=== PATIENT | male | born 1945 | race Caucasian/White ===

== ENCOUNTER 2020-08-31 12:07 | Inpatient (IN) | payer OTHER ==
[~2020-08-31] VITALS: Ht 177.8 cm; Wt 87.5 kg
[2020-08-31 13:05] LABS: Basophils # (auto) 0.1 10 ^3/uL (0-0.2); Basophils % (auto) 0.9 % (0.0-2.0); Eosinophils # (auto) 0.1 10 ^3/uL (0-0.8); Eosinophils % (auto) 1.8 % (0.0-7.0); Hematocrit 40.9 % (41.0-53.0); Lymphocytes # (auto) 1.1 10 ^3/uL (0.4-5.4); Lymphocytes % (auto) 18.1 % (10.0-50.0); Mean Corpuscular Hemoglobin 30.3 pg (28.0-32.0); Mean Corpuscular Hgb Conc. 34.2 g/dL (32.0-36.0); Mean Corpuscular Volume 88.4 fL (80.0-100.0); Monocytes # (auto) 0.7 10 ^3/uL (0-1.3); Monocytes % (auto) 10.7 % (0.0-12.0); Neutrophils # (auto) 4.3 10 ^3/uL (1.6-8.6); Neutrophils % (auto) 68.5 % (37.0-80.0); Platelet Count (auto) 215 10^3/uL (140-450); Red Blood Cells 4.62 10^6/uL (4.5-5.90); Red Cell Distribution Width 12.6 % (11.8-14.3); White Blood Cell 6.2 10^3/uL (4.4-10.8)
[2020-08-31 13:32] LABS: Chloride 105 mmol/L (98-107); Potassium 4.3 mmol/L (3.5-5.1); Sodium 136 mmol/L (136-145)
[2020-08-31 13:41] LABS: Alanine Aminotransferase 34 U/L (16-61); Albumin 3.8 g/dL (3.4-5.0); Alkaline Phosphatase 46 U/L (45-117); Anion Gap 5 (5-15); Aspartate Aminotransferase 17 U/L (15-37); BUN/Creatinine Ratio 17.4; Bilirubin, Total 0.8 mg/dL (0.2-1.0); Blood Urea Nitrogen 21 mg/dL (7-18); Calcium 8.8 mg/dL (8.5-10.1); Carbon Dioxide 26 mmol/L (21-32); GFR African American 75 mL/min; GFR Non-African American 62 mL/min; Glucose 131 mg/dL (74-106); Total Protein 7.1 g/dL (6.4-8.2)
[2020-08-31] MEDS ORDERED: ACETAMINOPHEN 325 MG TAB PO ONE (14:00)
[2020-08-31 14:04] LABS: INR 1.13 (0.9-1.15); Partial Thromboplastin Time 27.5 sec (23.0-31.2)
[2020-08-31] MEDS ORDERED: ASPirin 81 mg TAB PO ONE (15:45)
[2020-08-31] MEDS ORDERED: DOCUSATE SOD 100 MG CAP PO PRN (16:30)
[2020-08-31] MEDS ORDERED: MORPHINE SULF INJ 2 MG/ML SYRINGE 1ML IV PRN ×2 (16:30)
[2020-08-31] MEDS ORDERED: ACETAMINOPHEN 500 MG TAB PO PRN (16:30)
[2020-08-31] MEDS ORDERED: ONDANSETRON HCL 4 MG/2 ML VIAL IV PRN (16:30)
[2020-08-31] MEDS ORDERED: HYDROcodone-ACET 5/325MG TAB PO PRN (16:30)
[2020-08-31] MEDS ORDERED: NITROGLYCERIN 0.4 MG SL TAB SL PRN (16:30)
[2020-08-31 17:15] LABS: Cholesterol 104 mg/dL (< 200); Triglycerides 130 mg/dL (< 150)
[2020-08-31 17:18] LABS: HDL Cholesterol 36 mg/dL (40-59); LDL Cholesterol 59 mg/dL (< 100)
[2020-08-31] MEDS ORDERED: CLOPIDOGREL BISULFATE 75 MG TAB PO ONE (19:00)
[2020-08-31 20:32] VITALS: BP 119/58
[2020-08-31 22:00] VITALS: BP 119/58
[2020-08-31] MEDS: ATORVASTATIN 20 MG TAB PO SCH (22:59)
[2020-09-01 05:33] VITALS: BP 102/57
[2020-09-01 05:43] LABS: Urine WBC None Seen /hpf (0 - 3)
[2020-09-01 05:54] LABS: Urine Bacteria FEW /hpf (None Seen); Urine Blood Negative /uL (Negative); Urine Specific Gravity 1.011 (1.001-1.035)
[2020-09-01] MEDS ORDERED: CHOL400C9 PO (06:50)
[2020-09-01] MEDS ORDERED: METF-370 PO (06:50)
[2020-09-01] MEDS ORDERED: ASPI1TAB19 PO (06:50)
[2020-09-01] MEDS ORDERED: MULT-1058 PO (06:50)
[2020-09-01] MEDS ORDERED: B-CO1TAB8 PO (06:50)
[2020-09-01] MEDS ORDERED: SACU1TAB PO (06:50)
[2020-09-01] MEDS ORDERED: DIGO0.12 PO (06:50)
[2020-09-01] MEDS ORDERED: MECL25TA18 PO (06:50)
[2020-09-01] MEDS ORDERED: NITR0.4S29 SL (06:50)
[2020-09-01] MEDS ORDERED: EZET10TA22 PO (06:50)
[2020-09-01] MEDS ORDERED: LATA0.0019 EACHEYE (06:50)
[2020-09-01] MEDS ORDERED: ATOR-47 PO (06:50)
[2020-09-01] MEDS ORDERED: FENO145T27 PO (06:50)
[2020-09-01 08:00] VITALS: BP 114/71
[2020-09-01 09:00] VITALS: BP 114/71
[2020-09-01 09:18] LABS: Basophils # (auto) 0 10 ^3/uL (0-0.2); Basophils % (auto) 1.1 % (0.0-2.0); Eosinophils # (auto) 0.1 10 ^3/uL (0-0.8); Hemoglobin 13.4 g/dL (13.5-17.5); Lymphocytes # (auto) 1.1 10 ^3/uL (0.4-5.4); Lymphocytes % (auto) 27.6 % (10.0-50.0); Mean Corpuscular Hemoglobin 29.9 pg (28.0-32.0); Mean Corpuscular Hgb Conc. 34.4 g/dL (32.0-36.0); Monocytes # (auto) 0.4 10 ^3/uL (0-1.3); Monocytes % (auto) 11.3 % (0.0-12.0); Neutrophils # (auto) 2.2 10 ^3/uL (1.6-8.6); Platelet Count (auto) 199 10^3/uL (140-450); Red Blood Cells 4.48 10^6/uL (4.5-5.90); Red Cell Distribution Width 12.4 % (11.8-14.3); White Blood Cell 3.9 10^3/uL (4.4-10.8)
[2020-09-01 09:37] LABS: BUN/Creatinine Ratio 17.6; Calcium 8.3 mg/dL (8.5-10.1); Magnesium 2.2 mg/dL (1.6-2.6); Potassium 3.7 mmol/L (3.5-5.1)
[2020-09-01] MEDS: ASPirin 81 mg TAB PO SCH (09:41)
[2020-09-01] MEDS ORDERED: FAMOTIDINE 20 MG TAB PO SCH (10:00)
[2020-09-01 13:00] VITALS: BP 108/66
[2020-09-01] MEDS ORDERED: FUROSEMIDE 20 MG/2 ML VIAL IV ONE (14:15)
[2020-09-01 17:00] VITALS: BP 101/64
[2020-09-01] MEDS: ATORVASTATIN 20 MG TAB PO SCH (21:25)
[2020-09-01 22:41] VITALS: BP 103/58
[2020-09-02 05:22] VITALS: BP 116/66
[2020-09-02 05:46] LABS: Basophils # (auto) 0 10 ^3/uL (0-0.2); Basophils % (auto) 0.9 % (0.0-2.0); Eosinophils # (auto) 0.3 10 ^3/uL (0-0.8); Eosinophils % (auto) 7.6 % (0.0-7.0); Hematocrit 40.7 % (41.0-53.0); Hemoglobin 14.3 g/dL (13.5-17.5); Lymphocytes # (auto) 1.2 10 ^3/uL (0.4-5.4); Lymphocytes % (auto) 28.4 % (10.0-50.0); Mean Corpuscular Hemoglobin 30.6 pg (28.0-32.0); Mean Corpuscular Volume 87.3 fL (80.0-100.0); Monocytes # (auto) 0.5 10 ^3/uL (0-1.3); Monocytes % (auto) 12.4 % (0.0-12.0); Neutrophils # (auto) 2.1 10 ^3/uL (1.6-8.6); Neutrophils % (auto) 50.7 % (37.0-80.0); Nucleated Red Blood Cells % 0.4 %; Platelet Count (auto) 189 10^3/uL (140-450); Red Blood Cells 4.67 10^6/uL (4.5-5.90); Red Cell Distribution Width 12.7 % (11.8-14.3); White Blood Cell 4.2 10^3/uL (4.4-10.8)
[2020-09-02 06:02] LABS: BUN/Creatinine Ratio 19.1; Calcium 8.6 mg/dL (8.5-10.1); Potassium 3.8 mmol/L (3.5-5.1)
[2020-09-02 08:00] VITALS: BP 117/72
[2020-09-02] MEDS ORDERED: FAMOTIDINE 20 MG TAB PO SCH (10:00)
[2020-09-02] MEDS ORDERED: FUROSEMIDE 20 MG/2 ML VIAL IV SCH (10:00)
[2020-09-02] MEDS: ASPirin 81 mg TAB PO SCH (10:21)
[2020-09-02] MEDS ORDERED: ONDANSETRON HCL 4 MG/2 ML VIAL IV ONE (11:30)
[2020-09-02] MEDS ORDERED: MIDAZOLAM HCL 5 MG/ML-1ML VIAL IV ONE (11:30)
[2020-09-02] MEDS ORDERED: LIDOCAINE VISCOUS 2% 15ML UD PO ONE (11:30)
[2020-09-02] MEDS ORDERED: fentaNYL CITRATE 100 MCG/2 ML VL IV ONE (11:30)
[2020-09-02] MEDS ORDERED: MIDAZOLAM HCL 1MG/1ML-2 ML VIAL ONE (12:00)
[2020-09-02 16:47] VITALS: BP 110/96
== END 2020-09-02 17:00 | disposition home or self-care (01) | DRG 64 ==
LOC: ER 12:07 → TELE 12:08 → TELE-CENTR 20:32
PROVIDERS: ADMIT Nurse Practitioner Acute Care; ATTEND Internal Medicine
PROC: 4B02XTZ Measurement of Cardiac Defibrillator, External Approach (ICD-10-PCS; 2020-09-01)
PROC: B246ZZ4 Ultrasonography of Right and Left Heart, Transesophageal (ICD-10-PCS; principal; 2020-09-02)
DX: I63.9 Cerebral infarction, unspecified (principal); I50.23 Acute on chronic systolic (congestive) heart failure; R47.01 Aphasia; E78.5 Hyperlipidemia, unspecified; I25.10 Atherosclerotic heart disease of native coronary artery without angina pectoris; E11.9 Type 2 diabetes mellitus without complications; F17.200 Nicotine dependence, unspecified, uncomplicated; I11.0 Hypertensive heart disease with heart failure; Z20.822 Contact with and (suspected) exposure to COVID-19; I25.2 Old myocardial infarction; Z79.02 Long term (current) use of antithrombotics/antiplatelets; Z79.82 Long term (current) use of aspirin; Z95.810 Presence of automatic (implantable) cardiac defibrillator; Z95.1 Presence of aortocoronary bypass graft; R47.1 Dysarthria and anarthria; G83.21 Monoplegia of upper limb affecting right dominant side; Z91.041 Radiographic dye allergy status
CPT/HCPCS: 36415; 70450; 71045; 80048; 80053; 80061; 81001; 82306; 83036; 83735; 83880; 84443; 84484; 85025; 85610; 85730; 87426; 93005; 93306; 93312; 93886; G0378; J2250; J2405

== ENCOUNTER → 2021-02-15 | Outpatient (CLI) | payer OTHER ==
[~2021-02-15] MED LIST: ASPI1TAB19 PO; ATOR-47 PO; B-CO1TAB8 PO; CHOL400C9 PO; DIGO0.12 PO; EZET10TA22 PO; FENO145T27 PO; LATA0.0019 EACHEYE; MECL25TA18 PO; METF-370 PO; MULT-1058 PO; NITR0.4S29 SL; SACU1TAB PO
== END | disposition home or self-care (01) ==
LOC: LAB 13:10
PROVIDERS: ATTEND Internal Medicine
DX: Z20.822 Contact with and (suspected) exposure to COVID-19 (principal); Z00.00 Encounter for general adult medical examination without abnormal findings
CPT/HCPCS: C9803; U0003

== ENCOUNTER → 2021-02-17 | Outpatient (CLI) | payer OTHER ==
[2021-02-17 08:29] LABS: Basophils # (auto) 0 10 ^3/uL (0-0.2); Basophils % (auto) 1.3 % (0.0-2.0); Eosinophils # (auto) 0.2 10 ^3/uL (0-0.8); Eosinophils % (auto) 6.3 % (0.0-7.0); Hematocrit 43.2 % (41.0-53.0); Hemoglobin 14.8 g/dL (13.5-17.5); Lymphocytes # (auto) 1.2 10 ^3/uL (0.4-5.4); Lymphocytes % (auto) 36.6 % (10.0-50.0); Mean Corpuscular Hemoglobin 30.1 pg (28.0-32.0); Mean Corpuscular Hgb Conc. 34.1 g/dL (32.0-36.0); Mean Corpuscular Volume 88.2 fL (80.0-100.0); Monocytes # (auto) 0.4 10 ^3/uL (0-1.3); Monocytes % (auto) 10.8 % (0.0-12.0); Neutrophils # (auto) 1.5 10 ^3/uL (1.6-8.6); Nucleated Red Blood Cells % 0.1 %; Red Cell Distribution Width 13.1 % (11.8-14.3); White Blood Cell 3.4 10^3/uL (4.4-10.8)
[2021-02-17 08:54] LABS: Albumin 3.8 g/dL (3.4-5.0); Potassium 4.6 mmol/L (3.5-5.1)
[2021-02-17 08:59] LABS: Bilirubin, Direct 0.2 mg/dL (0-0.2); Bilirubin, Total 0.7 mg/dL (0.2-1.0)
== END | disposition home or self-care (01) ==
LOC: LAB 08:07
PROVIDERS: ATTEND Internal Medicine
DX: Z12.5 Encounter for screening for malignant neoplasm of prostate (principal); Z12.11 Encounter for screening for malignant neoplasm of colon; E11.9 Type 2 diabetes mellitus without complications; I10 Essential (primary) hypertension; E78.5 Hyperlipidemia, unspecified; R94.5 Abnormal results of liver function studies; D64.9 Anemia, unspecified; E03.9 Hypothyroidism, unspecified
CPT/HCPCS: 36415; 80053; 80061; 80076; 82043; 83036; 84153; 84443; 85025